=== PATIENT | female | born 1950 ===

== ENCOUNTER 2022-02-21 08:31 | Emergency (ER) | payer MEDICARE, OTHER ==
[~2022-02-21] VITALS: Ht 157.5 cm; Wt 72.2 kg
[2022-02-21] MEDS ORDERED: NS 1,000 ML IV ONE (11:20)
[2022-02-21 12:17] LABS: BASO % 0.4 % (0.0-1.0); EOS # 0.1 10^3/uL (0.0-0.5); EOS % 0.9 % (0.0-3.0); HEMATOCRIT 45.6 % (36.0-47.0); HEMOGLOBIN 14.8 g/dl (12.0-15.5); LYMPH # 1.8 10^3/uL (1.5-5.0); LYMPH % 22.7 % (24.0-44.0); MEAN CORPUSCULAR HEMOGLOBIN 29.1 pg (27.0-33.0); MEAN CORPUSCULAR HGB CONC 32.5 g/dl (32.0-36.5); MEAN CORPUSCULAR VOLUME 89.6 fl (80.0-96.0); MONO # 0.5 10^3/uL (0.0-0.8); MONO % 6.4 % (2.0-8.0); NEUTROPHILS # 5.3 10^3/uL (1.5-8.5); NEUTROPHILS % 68.8 % (36.0-66.0); PLATELET COUNT, AUTOMATED 247 10^3/uL (150-450); RED BLOOD COUNT 5.09 10^6/uL (4.00-5.40); WHITE BLOOD COUNT 7.7 10^3/uL (4.0-10.0)
[2022-02-21] MEDS ORDERED: ISOVUE-370 76% 100ML VIAL As Ordered ONE (12:28)
[2022-02-21 12:33] LABS: INR 0.94
[2022-02-21 12:34] LABS: PARTIAL THROMBOPLASTIN TIME 28.2 SECONDS (25.9-37.0)
[2022-02-21 14:27] VITALS: BP 141/69
== END 2022-02-21 15:00 | disposition home or self-care (01) ==
LOC: M ED 08:31
DX: R20.2 Paresthesia of skin (principal); I70.92 Chronic total occlusion of artery of the extremities; I99.8 Other disorder of circulatory system; I10 Essential (primary) hypertension; J44.9 Chronic obstructive pulmonary disease, unspecified
CPT/HCPCS: 73706; 80047; 85025; 85610; 85730; 93971; 96360; 96361; 99284; Q9967